=== PATIENT | male | born 1945 | race Caucasian/White ===

== ENCOUNTER 2018-09-17 07:36 | Day surgery (SDC) | payer OTHER ==
[~2018-09-17] VITALS: Ht 177.8 cm; Wt 98.3 kg
[~2018-09-17 07:36] MED LIST: AMLO10; AMLO10 PO; CLOB.05TC; CLOB.05TO TOP; EUTHYROX50 MCG PO; FISH OIL 1,2001 EACH PO; Glucosamine &1 EACH PO; METTREX2.5; Opcon-A Eye Dro15 M1 BOTHEYES; PROBIOTIC ACID1.5 MG PO; SIMV10; TIROSINT50 MCG; TURMERIC 500 M1 EACH PO; VITAMIN D32000 UNIT PO; ZYRTEC10 M1 PO; Zocor20 MG PO
[2018-09-17] MEDS ORDERED: UBID10 PO (08:26)
--- NOTE | 2018-09-17 09:06 | NUR ---
09/17/18 0906 Jean Hernandez S PATIENT HAS RASH ON UPPER EXTREMITIES AND LOWER EXTREMITIES. PATIENT HAS HAD IT FOR YEARS BUT IT NOT SURE OF EXACT NAME OF RASH. PATIENT STATES IT IS NOT CONTAGEOUS.
--- NOTE | 2018-09-17 09:54 | NUR ---
09/17/18 0954 Rosetta Lester PT HAS CHRONIC SKIN CONDITION ON RIGHT FOREARM. THERE ARE AREAS OF RED SORES BUT ALL HAVE INTACT SKIN. DID DISCUSS THE USE OF ALCHOL AND DURAPREP ON THE AREA AND PT HAS NO CONCERNS.
--- NOTE | 2018-09-17 13:18 | NUR ---
09/17/18 1318 Shira Almonte PT BROUGHT OWN POLAR PACK FROM HOME. I PUT IT ON AND MADE SURE IT WORKED. [place] AT HIS BEDSIDE
== END 2018-09-17 14:40 | disposition home or self-care (01) ==
LOC: ORSCSDS 07:36
PROVIDERS: Orthopaedic Surgery
PROC: 0RNJ4ZZ Release Right Shoulder Joint, Percutaneous Endoscopic Approach (ICD-10-PCS; principal; 2018-09-17 09:00)
PROC: 0LQ14ZZ Repair Right Shoulder Tendon, Percutaneous Endoscopic Approach (ICD-10-PCS; principal; 2018-09-17 09:00)
DX: M75.121 Complete rotator cuff tear or rupture of right shoulder, not specified as traumatic (principal); I10 Essential (primary) hypertension; E03.9 Hypothyroidism, unspecified; Z79.899 Other long term (current) drug therapy
CPT/HCPCS: C1713; J0171; J0330; J0690; J1100; J2250; J2405; J2704; J2710; J3010; J7120

== ENCOUNTER → 2020-01-21 | Outpatient (CLI) | payer OTHER ==
[~2020-01-21] MED LIST changes: +UBID10 PO
[2020-01-22 14:10] LABS: Stool Occult Bld Immuno 1 Negative (NEGATIVE); Stool Occult Bld Immuno 2 Negative (NEGATIVE)
== END | disposition home or self-care (01) ==
LOC: OLS 08:40 → LAB SHORT 08:40
PROVIDERS: Internal Medicine Gastroenterology
DX: Z12.11 Encounter for screening for malignant neoplasm of colon (principal)
CPT/HCPCS: G0328

== ENCOUNTER → 2021-01-23 | Outpatient (CLI) | payer OTHER | LOC: PLD 15:37 → LAB SHORT 15:37 | DX: D48.5 Neoplasm of uncertain behavior of skin (principal) | CPT/HCPCS: 88305 ==

== ENCOUNTER → 2021-02-27 | Outpatient (CLI) | payer OTHER | END | disposition home or self-care (01) | LOC: LAB SHORT 07:26 | DX: C44.629 Squamous cell carcinoma of skin of left upper limb, including shoulder (principal) | CPT/HCPCS: 88305 ==

== ENCOUNTER → 2021-08-04 | Outpatient (CLI) | payer OTHER ==
[2021-08-04 14:54] LABS: Adenovirus F 40/41 Not Detected (NOT DETECT); Astrovirus Not Detected (NOT DETECT); Campylobacter Sp Not Detected (NOT DETECT); Cryptosporidium Not Detected (NOT DETECT); Cyclospora Cayetanensis Not Detected (NOT DETECT); E. Coli O157 Not Detected (NOT DETECT); Entamoeba Histolytica Not Detected (NOT DETECT); Enteroaggregative E. coli-EAEC Not Detected (NOT DETECT); Enteropathogenic E. coli-EPEC Not Detected (NOT DETECT); Enterotoxigenic E. coli-ETEC Not Detected (NOT DETECT); Giardia Lamblia Not Detected (NOT DETECT); Norovirus GI/GII Not Detected (NOT DETECT); Plesiomonas Shigelloides Not Detected (NOT DETECT); Rotavirus A Not Detected (NOT DETECT); Salmonella Sp Not Detected (NOT DETECT); Sapovirus Not Detected (NOT DETECT); Shiga Toxin-prod E. coli-STEC Not Detected (NOT DETECT); Shigella/Enteroin E. coli-EIEC Not Detected (NOT DETECT); Vibrio Cholerae Not Detected (NOT DETECT); Vibrio Sp Not Detected (NOT DETECT); Yersinia Enterocolitica Not Detected (NOT DETECT)
== END ==
LOC: LAB 07:38 → LAB SHORT 07:38
PROVIDERS: Internal Medicine Gastroenterology
DX: K52.832 Lymphocytic colitis (principal); R19.7 Diarrhea, unspecified
CPT/HCPCS: 87507

== ENCOUNTER → 2022-05-08 | Outpatient (CLI) | payer OTHER | END | disposition home or self-care (01) | LOC: LAB SHORT 11:11 → LAB 11:11 | DX: C44.329 Squamous cell carcinoma of skin of other parts of face (principal); L57.0 Actinic keratosis | CPT/HCPCS: 88305 ==

== ENCOUNTER → 2024-04-14 | Outpatient (CLI) | payer OTHER ==
[2024-04-14 14:34] LABS: Adenovirus F 40/41 Not Detected (NOT DETECT); Astrovirus Not Detected (NOT DETECT); Campylobacter Sp Not Detected (NOT DETECT); Cryptosporidium Not Detected (NOT DETECT); Cyclospora Cayetanensis Not Detected (NOT DETECT); E. Coli O157 Not Detected (NOT DETECT); Entamoeba Histolytica Not Detected (NOT DETECT); Enteroaggregative E. coli-EAEC Not Detected (NOT DETECT); Enteropathogenic E. coli-EPEC Not Detected (NOT DETECT); Enterotoxigenic E. coli-ETEC Not Detected (NOT DETECT); Giardia Lamblia Not Detected (NOT DETECT); Norovirus GI/GII Not Detected (NOT DETECT); Plesiomonas Shigelloides Not Detected (NOT DETECT); Rotavirus A Not Detected (NOT DETECT); Salmonella Sp Not Detected (NOT DETECT); Sapovirus Not Detected (NOT DETECT); Shiga Toxin-prod E. coli-STEC Not Detected (NOT DETECT); Shigella/Enteroin E. coli-EIEC Not Detected (NOT DETECT); Vibrio Cholerae Not Detected (NOT DETECT); Vibrio Sp Not Detected (NOT DETECT); Yersinia Enterocolitica Not Detected (NOT DETECT)
== END ==
LOC: LAB SHORT 11:01 → LAB 11:01
PROVIDERS: Nurse Practitioner Family
DX: R19.7 Diarrhea, unspecified (principal)
CPT/HCPCS: 87507